=== PATIENT | female | born 1955 | race Caucasian/White ===

== ENCOUNTER 2018-12-21 20:42 | Observation (INO) | payer SELFPAY, OTHER | END 2018-12-23 16:17 | disposition home or self-care (01) | LOC: JER 20:42 → JERBED 12-22 01:18 → J4W 12-22 18:15 ==

== ENCOUNTER 2019-03-21 08:42 | Day surgery (SDC) | payer OTHER | END 2019-03-21 11:30 | disposition home or self-care (01) | LOC: JASU-ENDO 08:42 ==

== ENCOUNTER 2019-03-28 21:46 | Inpatient (IN) | payer OTHER ==
--- NOTE | 2019-03-28 21:54 | PDOC ---
Rapid Medical Evaluation Medical Evaluation: Allergies Allergy/AdvReac Type Severity Reaction Status Date / Time Penicillins Allergy Severe Verified 01/03/19 08:52 Sulfa (Sulfonamide Allergy Severe Verified 01/03/19 08:52 Antibiotics) I have performed a brief in-person evaluation of this patient. The patient presents with a chief complaint of: had injection done of her L knee by orthopedics today; started feeling dizzy after receiving injection along with nausea; denies vomiting, vertigo, sob, cp; hx epilepsy, HTN, CAD s/p HI with PCI (no stents), GERD, asthma Pertinent physical exam findings: In NAD I have ordered the following: Labs, EKG The patient will proceed to the ED for further evaluation. 03/28/19 21:48 Discharge Disposition - Referrals Referrals: Perry Chowdary MD [Primary Care Provider] - - Patient Instructions - Post Discharge Activity
--- NOTE | 2019-03-28 23:24 | PDOC ---
History of Present Illness - General Chief Complaint: Lightheaded Stated Complaint: DIZZINESS Time Seen by Provider: 03/28/19 21:48 - History of Present Illness Initial Comments: 03/28/19 23:23 63 yo M with h/o HTN, HLD, CVA, CAD who p/w left sided headache/pressure, lightheadedness. [employer] phone [phone], Indonesian speaking female. Patient reports onset of headache 30 minutes following steroid injection (03-28-19 at 4: 00 PM) in the left knee. Describes unremitting, headache as left sided pressure , lasting for minutes and resolves spontaneously. No associated photo/phonobia, scintillating scotoma, aura, convulsions. No identifiable alleviators. Patient also reports forgetfulness today, "forgetting what she is going to say. " Denies similar presentation. Patient also states that she felt lightheaded following knee injection, lasting for seconds then resolving spontaneously, and recurring throughout the day. Denies LOC. Also endorses 1 week of + sharp, intermittent, left sided neck pain, worse with right sided rotational head movement,x 1 week. denies trauma to neck, heavy lifting, or repetitive movements. Patient denies vision change, vertigo, palpitations, cough, wheezing, orthopena , PND, leg swelling/pain, F,C, CP, SOB, urinary complaints, hematuria, BPR, abdominal pain, diarrhea, constipation, weakness, sensory changes. Recent stress test (01/03/19) unremarkable. PMHx: as noted above ROS: as noted SHx: Denies Etoh, IVDA, tobacco use Allergies: Sulfa medications, PCN Past History - Past Medical History Allergies/Adverse Reactions: Allergies Allergy/AdvReac Type Severity Reaction Status Date / Time Penicillins Allergy Severe Verified 03/28/19 21:55 Sulfa (Sulfonamide Allergy Severe Verified 03/28/19 21:55 Antibiotics) Home Medications: Ambulatory Orders Atorvastatin Ca [Lipitor] 40 mg PO HS 12/21/18 Aspirin 100 mg PO DAILY 12/22/18 Verapamil HCl [Verapamil ER] 180 mg PO DAILY 12/22/18 Carbamazepine [Tegretol -] 200 mg PO TID #90 tablet 12/23/18 Ipratropium Chandler [Atrovent Hfa] 12.9 gm IH DAILY 03/20/19 Naproxen 500 mg PO BID 03/20/19 Acetaminophen [Tylenol] 650 mg PO PRN 03/21/19 Bisacodyl [Dulcolax] 5 mg PO PRN 03/21/19 Ranitidine [Zantac -] 150 mg PO PRN 03/21/19 Telmisartan [Micardis] 80 mg PO DAILY 03/21/19 Cardiac Disorders: Yes (NV, CAD PCI NO STENTS) CVA: Yes COPD: No Disorders: Yes (GERD,Constipation) HTN: Yes Hypercholesterolemia: Yes Seizures: Yes (Epilepsy) - Surgical History Abdominal Surgery: Yes Cholecystectomy: Yes - Immunization History Immunization Up to Date: Yes - Suicide/Smoking/Psychosocial Hx Smoking History: Never smoked Have you smoked in the past 12 months: No Information on smoking cessation initiated: No Hx Alcohol Use: No Drug/Substance Use Hx: No Substance Use Type: None Hx Substance Use Treatment: No Review of Systems - Review of Systems Comments:: 03/28/19 23:23 GENERAL/CONSTITUTIONAL: No fever or chills. HEAD, EYES, EARS, NOSE AND THROAT: No change in vision. No ear pain or discharge. No sore throat. CARDIOVASCULAR: No chest pain or shortness of breath RESPIRATORY: No cough, wheezing, or hemoptysis. GASTROINTESTINAL: + nausea. No vomiting, diarrhea or constipation. GENITOURINARY: No dysuria, frequency, or change in urination. MUSCULOSKELETAL: + Neck pain. No joint or muscle swelling or pain. No back pain. SKIN: No rash NEUROLOGIC: + headache. No vertigo, loss of consciousness, or change in strength /sensation. ENDOCRINE: No increased thirst. No abnormal weight change HEMATOLOGIC/LYMPHATIC: No anemia, easy bleeding, or history of blood clots. ALLERGIC/IMMUNOLOGIC: No hives or skin allergy. *Physical Exam - Vital Signs Last Vital Signs Temp Pulse Resp BP Pulse Ox 98.3 F 79 18 152/70 100 03/28/19 21:48 03/28/19 21:48 03/28/19 21:48 03/28/19 21:48 03/28/19 21:48 - Physical Exam Comments: 03/28/19 23:23 GENERAL: Awake, alert, and fully oriented, in no acute distress HEAD: No signs of trauma, normocephalic, atraumatic EYES: PERRLA, EOMI, sclera anicteric, conjunctiva clear ENT: +left anterior neck pain/ttp at anterior triangle/superior medial SCM. Auricles normal inspection, hearing grossly normal, nares patent, oropharynx clear without exudates. Moist mucosa NECK: Neg nuchal rigidity. Normal ROM, supple, no lymphadenopathy, JVD, or masses LUNGS: No distress, speaks full sentences, clear to auscultation bilaterally HEART: Regular rate and rhythm, normal S1 and S2, no murmurs, rubs or gallops, peripheral pulses normal and equal bilaterally. ABDOMEN: Soft, nontender, normoactive bowel sounds. No guarding, no rebound. No masses EXTREMITIES : Normal inspection, Normal range of motion, no edema. No clubbing or cyanosis NEUROLOGICAL: Cranial nerves II through XII grossly intact. Normal speech, normal gait, no focal sensorimotor deficits SKIN: Warm, Dry, normal turgor, no rashes or lesions noted Heart Score/ECG Review - History History: Slightly suspicious - Electrocardiogram EKG: Non specific repolarization disturbance - Age Age: >/= 65 - Risk Factors Risk Factors Heart Score: Yes Hx Hypercholesterolemia, Yes Hx Hypertension, Yes Hx Diabetes, Yes Positive family hx of cardiac disease, Yes Hx Obesity Based on the list above the patient has:: >/=3 risk factors or Hx atherosclerotic disease - Troponin Troponin: </= normal limit - Score Heart Score - Total: 5 ED Treatment Course - LABORATORY CBC & Chemistry Diagram: 03/29/19 00:35 03/29/19 00:35 - ADDITIONAL ORDERS Additional order review: 03/29/19 06:04 Patient Information: : 1955 Order Type: Preliminary Name: MORE ONEAL Sex: F Study Description: CT CTA HEAD AND NECK Modality: CT Location: [facility] Referring Physician: YUDY NUNEZ Comments: Tiago Hansen MD wrote on Mar 29, 2019 at 03:13 AM: Referring Physician: YUDY NUNEZ Patient Name: KIMMY AGUERO THIS IS A PRELIMINARY REPORT FROM [facility] DATE OF SERVICE: 2019-03-29 02:30:10 IMAGES: [id number] EXAM: CTA brain and CTA neck HISTORY: Left-sided anterior neck pain and left-sided headache lightheaded slurred speech COMPARISON: None. FINDINGS: CTA brain: The anterior and posterior arterial circulations are patent. No stenosis occlusion dissection or aneurysm. Minimal atherosclerotic calcification noted along the carotid siphons. CTA neck: Limitation: There is motion artifact at the base of the neck limiting evaluation of the carotid arteries bilaterally at the base of the neck. CONFIDENTIALITY NOTICE: This information is intended only for the use of the recipient(s) named above. If you are not the intended recipient, or a person responsible for delivering it to the intended recipient, you are hereby notified that any disclosure, copying, distribution or use of any of the information contained in or attached to this transmission is STRICTLY PROHIBITED. If you have received this transmission in error, please immediately notify [facility] Operator and destroy the original transmission and its attachments without saving them in any manner [address] [place] [address] Phone: [phone] ([phone]) Fax: Email: [email or web address] Patient Information: : 1955 Order Type: Preliminary Name: MORE ONEAL Sex: F Study Description: CT CTA HEAD AND NECK Modality: CT Location: [facility] Referring Physician: YUDY Daniels the cervical common carotid arteries, the bifurcations, the cervical internal carotid arteries and bilateral cervical vertebral arteries are patent without stenosis occlusion dissection or aneurysm Minimal atherosclerotic plaque at the left carotid bifurcation. One or more of the following dose reduction techniques were used: automated exposure control, adjustment of the mA and/or kV according to patient size, use of iterative reconstructive technique. THIS DOCUMENT HAS BEEN ELECTRONICALLY SIGNED Tiago Hansen MD 03/29/2019 03:12 PUMA MBrandon. Please call [facility] Sp[facility] Scre[facility] Machine Operator [phone] ([phone]) with questions. Tiago Hansen MD Clinicians - Please contact [facility] Sp[facility] Scre[facility] Machine Operator with further questions at [phone]) Patients - Please contact your Ordering Provider with questions. CONFIDENTIALITY NOTICE: This information is intended only for the use of the Medical Decision Making - Medical Decision Making 03/28/19 23:23 63 yo M with h/o HTN, HLD, CVA, CAD who p/w left sided headache/pressure, lightheadedness. Vitals wnl, AF, A&Ox3. Physical exam with reproducible left anterior neck pain/ttp at anterior triangle/superior medial SCM. Absent neuro deficits on exam. Denies vertigo, palpitations, cough, wheezing, leg swelling/ pain, F/C, CP, SOB, urinary complaints, BPR, abdominal pain, diarrhea, constipation, sensory changes. + headache with absent alarm findings, negative nuchal rigidity. GOMEZ is gradual onset, similar to prior GOMEZ, and low intensity. No evidence carotid dissection. Will evaluate for hypoglycemia, CVA/TIA, cardiac dyssarythmias, electrolyte abnml, metabolic and toxic derangements, acid -base disturbances, infection. Ed Course: 03/28/19 23:33 EKG: NSR with absent ROSIBEL, STD. Nml interval duration and axis. Nml R wave progression. Absent Q waves. + TWI V2-V3. Similar to prior interval EKG (12/28) 03/29/19 06:03 Laboratory Tests 03/29/19 03/29/19 03/29/19 00:35 00:35 00:35 WBC 5.7 Hgb 11.6 Hct 34.8 Plt Count 265 Sodium 134 L BUN 15.2 Creatinine 0.7 Troponin I 0.02 Heart Score 5 03/29/19 06:04 Findings CTA: The anterior and posterior arterial circulations are patent. No stenosis occlusion dissection or aneurysm. Minimal atherosclerotic calcification noted along the carotid siphons. CTA neck: Limitation: There is motion artifact at the base of the neck limiting evaluation of the carotid arteries bilaterally at the base of the neck. 03/29/19 07:06 Pt. endorsed to medicine. Admit *DC/Admit/Observation/Transfer Diagnosis at time of Disposition: Lightheadedness, TIA (transient ischemic attack) - Discharge Dispostion Condition at time of disposition: Stable Decision to Admit order: Yes - Referrals Referrals: Perry Chowdary MD [Primary Care Provider] - - Patient Instructions - Post Discharge Activity
--- NOTE | 2019-03-28 23:25 | PDOC ---
*Physical Exam - Vital Signs Last Vital Signs Temp Pulse Resp BP Pulse Ox 98.3 F 79 18 152/70 100 03/28/19 21:48 03/28/19 21:48 03/28/19 21:48 03/28/19 21:48 03/28/19 21:48 Medical Decision Making - Medical Decision Making 03/28/19 23:24 Patient seen by the advanced practice provider under my direct supervision. Ancillary testing reviewed as necessary. I agree with plan as outlined by the advanced practice provider. *DC/Admit/Observation/Transfer - Referrals Referrals: Perry Chowdary MD [Primary Care Provider] - - Patient Instructions - Post Discharge Activity
[2019-03-29] MEDS ORDERED: SODIUM CHLORIDE 1,000 ML IV STA (00:32)
[2019-03-29] MEDS ORDERED: ACETAMINOPHEN 1000 MG/100 ML VIAL (NON FORMULARY) IVPB ONE (00:32)
[2019-03-29 01:00] LABS: BASO % 0.4 % (0-2.0); EOS % 4.1 % (0-4.5); HEMATOCRIT 34.8 % (32.4-45.2); HEMOGLOBIN 11.6 GM/dL (10.7-15.3); MCH 30.9 pg (25.7-33.7); MCHC 33.4 g/dl (32.0-36.0); MEAN CELL VOLUME 92.4 fl (80-96); MEAN PLT VOLUME 8.1 fl (7.5-11.1); MONO % 7.3 % (3.8-10.2); NEUT % 55.2 % (42.8-82.8); PLATELET COUNT 265 K/MM3 (134-434); RBC 3.77 M/mm3 (3.60-5.2); RDW 13.8 % (11.6-15.6); WHITE BLOOD COUNT 5.7 K/mm3 (4.0-10.0)
[2019-03-29 01:05] LABS: EPI CELLS 2.7 /HPF (0-5/HPF); HYALINE CASTS 1 /lpf (0-8); PH,URINE 7.5 (5.0-8.0); URINE APPEARANCE CLEAR; URINE BACTERIA 796.2 /hpf (NEGATIVE); URINE BILIRUBIN NEGATIVE (NEGATIVE); URINE COLOR YELLOW; URINE GLUCOSE (UA) NEGATIVE (NEGATIVE); URINE KETONE NEGATIVE (NEGATIVE); URINE LEUK ESTERASE TRACE (NEGATIVE); URINE NITRITE NEGATIVE (NEGATIVE); URINE PROTEIN NEGATIVE (NEGATIVE); URINE RBC 0 /hpf (0-4); URINE UROBILINOGEN 0.2 mg/dL (0.2-1.0); URINE WBC 4 /hpf (0-5)
[2019-03-29] MEDS ORDERED: ACETAMINOPHEN INJECTION 100 ML IVPB ONE (01:11)
[2019-03-29 01:25] LABS: BLOOD UREA NITROGEN 15.2 mg/dL (7-18); CREATININE 0.7 mg/dL (0.55-1.3)
[2019-03-29 01:26] LABS: ALBUMIN 3.9 g/dl (3.4-5.0); BILIRUBIN,TOTAL 0.2 mg/dL (0.2-1); POTASSIUM 4.4 mmol/L (3.5-5.1); TOT PROT 7.2 g/dl (6.4-8.2)
--- NOTE | 2019-03-29 08:36 | HP ---
CHIEF COMPLAINT: Headache, Neck Pain, ?Word finding difficulty PCP: Dr. Hawley HISTORY OF PRESENT ILLNESS: 63 y/o F with PMHx of Epilepsy, CAD (s/p PCI, No Stents, Recent stress test ), HTN, HLD, Asthma, GERD presents with Headache, Neck Pain and ?Word finding difficulty. Patient is primarily syriac speaking thus the [place] administrative law judge phone was use, [employer] [phone]. Patiet has had Left sided neck pain described as a strong ache, worse with palpation for the past week. Yesterday, she visited her Orthopedic sx for a cortisone injection; After the injection, patient felt sudden onset Left sided headache and face pain, accompanied by nausea and dizziness, forcing the patient to lay supine without relief. She shortly after went home however her symptoms persisted and she noted a new left eye conjunctival injection. She was hesitant to visit the ED but was afraid of worsening while asleep, prompting her to visit the ED. Her headache waxes and wanes, and is rated at 5-6/10 at worst, She is unable to describe it but mentions it radiates to her left neck and trapezius. Denies any recent trauma. No associated numbness, tingling, weakness. She has tried anything for the pain, and is unable to identify any triggers or relieving sx's. She additionally mentions some word finding difficulty while she was home. She is unable to quantify but mentions this has been ongoing and is currently not experiencing this. Denies any associated fevers, chills, chest pain, SOB, nausea, vomiting, diarhea , constipation. ER course was notable for: (1) (2) (3) Recent Travel: Denies PAST MEDICAL HISTORY: As above PAST SURGICAL HISTORY: CCY, Hysterectomy, Varicose vein repair Social History: Smoking: Denies Alcohol: Denies Drugs: Denies Ambulation: Cane Residence: With Family History: Mother with heart disease, Father with epilepsy Allergies Penicillins Allergy (Severe, Verified 03/28/19 21:55) Sulfa (Sulfonamide Antibiotics) Allergy (Severe, Verified 03/28/19 21:55) HOME MEDICATIONS: Home Medications Medication Instructions Recorded Atorvastatin Ca [Lipitor] 40 mg PO HS 12/21/18 Aspirin 81 mg PO DAILY 12/22/18 Verapamil HCl [Verapamil ER] 180 mg PO DAILY 12/22/18 Naproxen 500 mg PO BID 03/20/19 Telmisartan [Micardis] 80 mg PO DAILY 03/21/19 Albuterol Sulfate Inhaler - 2 puff PO TID 03/29/19 [Ventolin HFA Inhaler -] Carbamazepine [Tegretol -] 200 mg PO BID 03/29/19 Telmisartan/Hydrochlorothiazid PO DAILY 03/29/19 [Telmisartan-Hctz 80-12.5 mg Tb] REVIEW OF SYSTEMS As per HPI PHYSICAL EXAMINATION Vital Signs - 24 hr 03/28/19 03/29/19 21:48 07:29 Temperature 98.3 F Pulse Rate 79 Pulse Rate [ 66 Right Radial] Respiratory 18 18 Rate Blood Pressure 152/70 Blood Pressure 124/69 [Right Arm] O2 Sat by Pulse 100 100 Oximetry (%) GENERAL: A&Ox3, NAD HEAD: NCAT EYES: PERRL, EOMI, Left conjunctival injection ENT: oropharynx clear without exudates. Moist mucous membranes. NECK: No JVD, FROM however left rotation and sidebending induce pain, Left neck tender to palaption, no midline spine tenderness LUNGS: Diminished breath sounds at the bases, No wheezes, no crackles HEART: Regular rate and rhythm, normal S1 and S2 without murmur ABDOMEN: Obese, Soft, nontender, not distended, + bowel sounds, no guarding, no rebound EXTREMITIES: 2+ pulses, No peripheral edema. NEUROLOGICAL: Cranial nerves II-XII intact. Normal speech. Diminished sensation over the Left knee only otherwise Gross sensation including Left L4 dermatome intact, 5/5 muscle strength throughout. NIHSS 0 SKIN: Warm, dry, B/L Lower extremity Varicose veins Laboratory Results - last 24 hr 03/29/19 03/29/19 03/29/19 00:35 00:35 00:35 WBC 5.7 RBC 3.77 Hgb 11.6 Hct 34.8 MCV 92.4 MCH 30.9 MCHC 33.4 RDW 13.8 Plt Count 265 MPV 8.1 Absolute Neuts (auto) 3.2 Neutrophils % 55.2 Lymphocytes % 33.0 Monocytes % 7.3 Eosinophils % 4.1 D Basophils % 0.4 Nucleated RBC % 0 Sodium 134 L Potassium 4.4 Chloride 99 Carbon Dioxide 29 Anion Gap 7 L BUN 15.2 Creatinine 0.7 Est GFR (CKD-EPI)AfAm 105.38 Est GFR (CKD-EPI)NonAf 90.92 Random Glucose 94 Calcium 9.0 Total Bilirubin 0.2 AST 15 ALT 19 Alkaline Phosphatase 220 H Troponin I 0.02 Total Protein 7.2 Albumin 3.9 Urine Color Urine Appearance Urine pH Ur Specific Irwin Urine Protein Urine Glucose (UA) Urine Ketones Urine Blood Urine Nitrite Urine Bilirubin Urine Urobilinogen Ur Leukocyte Esterase Urine WBC (Auto) Urine RBC (Auto) Urine Casts (Auto) U Epithel Cells (Auto) Urine Bacteria (Auto) 03/29/19 00:35 WBC RBC Hgb Hct MCV MCH MCHC RDW Plt Count MPV Absolute Neuts (auto) Neutrophils % Lymphocytes % Monocytes % Eosinophils % Basophils % Nucleated RBC % Sodium Potassium Chloride Carbon Dioxide Anion Gap BUN Creatinine Est GFR (CKD-EPI)AfAm Est GFR (CKD-EPI)NonAf Random Glucose Calcium Total Bilirubin AST ALT Alkaline Phosphatase Troponin I Total Protein Albumin Urine Color Yellow Urine Appearance Clear Urine pH 7.5 Ur Specific Irwin 1.015 Urine Protein Negative Urine Glucose (UA) Negative Urine Ketones Negative Urine Blood Negative Urine Nitrite Negative Urine Bilirubin Negative Urine Urobilinogen 0.2 Ur Leukocyte Esterase Trace Urine WBC (Auto) 4 Urine RBC (Auto) 0 Urine Casts (Auto) 1 U Epithel Cells (Auto) 2.7 Urine Bacteria (Auto) 796.2 Active Medications Acetaminophen (Ofirmev Injection -) 1,000 mg IVPB Q6H PRN PRN Reason: HEADACHE Albuterol Sulfate (Ventolin Hfa Inhaler -) 2 puff IH TID [facility] Aspirin (Asa -) 81 mg PO DAILY [facility] Atorvastatin Calcium (Lipitor -) 40 mg PO HS [facility] Carbamazepine (Tegretol -) 200 mg PO BID [facility] Diphenhydramine HCl (Benadryl -) 25 mg PO Q6H PRN PRN Reason: FOR ITCHING Heparin Sodium (Porcine) (Heparin -) 5,000 unit SQ Q8H-IV [facility] Sodium Chloride (Normal Saline -) 1,000 mls @ 83 mls/hr IV ASDIR [facility] Ibuprofen (Caldolor Injection -) 600 mg IVPB Q8H PRN PRN Reason: FEVER Non-Formulary Medication ([id number]/Sod Sulf,Bicarb,Cl/Kcl [Gavilyte-G Solution]) 4,000 ml PO DAILY [facility] Non-Formulary Medication (Verapamil Hcl [Verapamil Er]) 180 mg PO DAILY [facility] ASSESSMENT/PLAN: 63 y/o F with PMHx of Epilepsy, CAD (s/p PCI, No Stents, Recent stress test ), HTN, HLD, Asthma, GERD presents with Headache and Neck Pain. #Headache, Neck Pain -Unclear Etiology; Refractory headache possibly Migraine, Word finding difficulty (?Chronic) raises concerns for possible TIA -Head and Neck CTA pending official Read -Check brain MRI w/o contrast -Continue IV Hydration via NS -Analgesia via IV Acetaminophen, Ibuprofen; If remains in pain will escalate to Toradol -Diphenhydramine PRN #Epilepsy -Continue home dose AEDs #CAD (s/p PCI, No Stents, Recent stress test 12/28) -Continue home dose ASA, Statin #HTN -Continue home dose Verapamil -Pharmacy has Rx sent on 03/26 for both Telmisartan (stand alone) and Telmisartan /HCTZ, Will reach out to PCP to determine which is correct #HLD -Statin #Asthma -Continue home dose bronchodilators #FEN -IV NS @ 83 -Replete Lytes PRN -Sodium Cont #PPx -DVT: Heparin Dispo: Admit to Med-Surg Visit type - Emergency Visit Emergency Visit: Yes ED Registration Date: 03/29/19 Care time: The patient presented to the Emergency Department on the above date and was hospitalized for further evaluation of their emergent condition. - New Patient This patient is new to me today: Yes Date on this admission: 03/29/19 - Critical Care Critical Care patient: No ATTENDING PHYSICIAN STATEMENT I saw and evaluated the patient. I reviewed the resident's note and discussed the case with the resident. I agree with the resident's findings and plan as documented. SUBJECTIVE: OBJECTIVE: ASSESSMENT AND PLAN:
[2019-03-29] MEDS ORDERED: IBUPROFEN 800 MG/8 ML IJ IVPB PRN (09:49)
[2019-03-29] MEDS ORDERED: ACETAMINOPHEN 1000 MG/100 ML VIAL (NON FORMULARY) IVPB PRN (09:49)
[2019-03-29] MEDS ORDERED: diphenhydrAMINE HCL 25 MG CAPSULE (FP) PO PRN (09:49)
[2019-03-29] MEDS: SODIUM CHLORIDE 1,000 ML IV SCH (10:44)
--- NOTE | 2019-03-29 11:17 | EKG ---
Test Reason : Blood Pressure : / mmHG Vent. Rate : 068 BPM Atrial Rate : 068 BPM P-R Int : 152 ms QRS Dur : 086 ms QT Int : 402 ms P-R-T Axes : 039 033 051 degrees QTc Int : 427 ms POOR DATA QUALITY, INTERPRETATION MAY BE ADVERSELY AFFECTED NORMAL SINUS RHYTHM T WAVE ABNORMALITY, CONSIDER ANTERIOR ISCHEMIA ABNORMAL ECG WHEN COMPARED WITH ECG OF 22-DEC-2018 05:19, NO SIGNIFICANT CHANGE WAS FOUND Confirmed by LYDIA ABDULLAHI MD ([id number]) on 03/29/2019 11:16:53 AM Referred By: Confirmed By:LYDIA ABDULLAHI MD
[2019-03-29 14:00] VITALS: BMI 40.5
[2019-03-29] MEDS: ALBUTEROL SO4 8 GM HFA INHALER IH SCH ×2 (14:00→22:03)
[2019-03-29] MEDS ORDERED: PT OWN MED DRAWER 7, Y5N ONE ×2 (14:38→21:45)
[2019-03-29] MEDS: HEPARIN NA (PORCINE) 5,000 UNITS/ML 1ML VIAL SQ SCH ×2 (15:03→22:00)
[2019-03-29] MEDS: ASPIRIN 81 MG CHEWABLE TABLETS PO SCH (15:03)
[2019-03-29] MEDS: carBAMazepine 200 MG TABLET PO SCH ×3 (17:09→23:46)
[2019-03-29] MEDS: VERAPAMIL HCL 180 MG E.R. TABLET PO SCH (17:10)
--- NOTE | 2019-03-29 17:40 | PN ---
Teaching Attending Note Name of Resident: Giulia Costa ATTENDING PHYSICIAN STATEMENT I saw and evaluated the patient. I reviewed the resident's note and discussed the case with the resident. I agree with the resident's findings and plan as documented. SUBJECTIVE: cigar head holer phone Abdirahman [phone] used CC: L sided GOMEZ and L sided numbness and neck pain HPI: 63 y/o lady with h/o Epilepsy, CAD, HTN, HLD, Asthma, GERD, amd recent PCi with no stents placement, who presented with L sided neck pain as well as GOMEZ , and L sided numbness. sx started yesterday, with L sided neck, with no proceeding trauma. yesterday she had difficulty finding words, which resolved today. today she hasL sided face pain and numbness in her LUE and LLE. she deos not have visual changes but noticed blood in her L eye today. she never had GOMEZ. of note she is poor historian and gave different stories to different MDs no fever or chills, no abd pain. OBJECTIVE: NAD, awake, alert and oriented HEENT: L subconjunctival bleed. round equal pupils, reactive to light. MMM. TTP over L trapezius muscle CV: RRR, no MRG Lungs:CATB Ext : No edema or erythema Abd: soft, NT, ND , NL BS Neuro: EOMI, round equal and reactive pupils, no facail droop, tongue and uvula at mid line. sensation to light touch is decreased in L face and LUE and LLE. strength 5/5 in upper and lower extremities proximally and distally. reflexes: 2 + biceps and knee jerk. imaging CTs, and EKG reviewed ( Sinus, RBBB, QTc 427, TWI V1, 2 old ) . ASSESSMENT AND PLAN: 63 y/o lady with h/o Epilepsy, CAD, HTN, HLD, Asthma, GERD, amd recent PCi with no stents placement, who presented with L sided neck pain as well as GOMEZ , and L sided numbness. 1- Neuro sx of L sided numbness and L sided face pain, could be due to complicated migraine , but need to r/o thalamic stroke CT of neck did not show any fx, spondylosis or bony abnormality. - get MRI of the brain. - no signs of hyper-reflexia ro concern for cervical compression - If MRI is neg, then might need a non urgent neck MRI. - treat with IVF, tylenol, bandryl, and toradol - check B 12 2- HTN, HLP, CAD: cont statin, CCB, ASA. DVT px : heparin
--- NOTE | 2019-03-29 19:47 | PDOC ---
Attending Attestation - Resident Resident Name: Juvenal Abdullahison - ED Attending Attestation I have performed the following: I have examined & evaluated the patient, The case was reviewed & discussed with the resident, I agree w/resident's findings & plan - HPI HPI: 03/29/19 19:45 see resident hpi - Physicial Exam PE: 03/29/19 19:45 agree with resident exam - Medical Decision Making 03/29/19 19:46 63-year-old female with left-sided headache and intermittent aphasia CTA of the head and neck show no significant abnormality Plan for admission to medical service for further evaluation
[2019-03-29] MEDS: ATORVASTATIN CA 40 MG TABLET (FP) PO SCH (22:08)
[2019-03-30] MEDS: HEPARIN NA (PORCINE) 5,000 UNITS/ML 1ML VIAL SQ SCH ×3 (06:06→22:14)
[2019-03-30] MEDS: ALBUTEROL SO4 8 GM HFA INHALER IH SCH ×3 (06:08→22:15)
[2019-03-30] MEDS ORDERED: PT OWN MED DRAWER 7, Y5N ONE ×2 (06:15→11:11)
[2019-03-30 07:15] LABS: BASO % 0.3 % (0-2.0); EOS % 2.7 % (0-4.5); HEMOGLOBIN 11.6 GM/dL (10.7-15.3); LYMPH % 35.8 % (8-40); MCH 31.5 pg (25.7-33.7); MCHC 34.1 g/dl (32.0-36.0); MEAN CELL VOLUME 92.3 fl (80-96); MONO % 6.4 % (3.8-10.2); NEUT % 54.8 % (42.8-82.8); PLATELET COUNT 258 K/MM3 (134-434); RBC 3.69 M/mm3 (3.60-5.2); WHITE BLOOD COUNT 5.7 K/mm3 (4.0-10.0)
[2019-03-30 08:06] LABS: ALBUMIN 3.5 g/dl (3.4-5.0); BILIRUBIN,TOTAL 0.4 mg/dL (0.2-1); BLOOD UREA NITROGEN 15.9 mg/dL (7-18); CALCIUM 8.6 mg/dL (8.5-10.1); CREATININE 0.7 mg/dL (0.55-1.3); MAGNESIUM 2.2 mg/dL (1.8-2.4); PHOSPHOROUS 4.7 mg/dL (2.5-4.9); POTASSIUM 3.9 mmol/L (3.5-5.1); TOT PROT 6.7 g/dl (6.4-8.2)
[2019-03-30] MEDS ORDERED: [UNRECOGNIZED DRUG - OTHER] PO SCH (10:00)
[2019-03-30] MEDS ORDERED: POTASSIUM CHLORIDE PO SCH (10:00)
[2019-03-30] MEDS ORDERED: SODIUM SULFATE PO SCH (10:00)
[2019-03-30] MEDS ORDERED: SODIUM BICARBONATE PO SCH (10:00)
[2019-03-30] MEDS ORDERED: SODIUM CHLORIDE PO SCH (10:00)
[2019-03-30] MEDS: SODIUM CHLORIDE 1,000 ML IV SCH (11:17)
[2019-03-30] MEDS: VERAPAMIL HCL 180 MG E.R. TABLET PO SCH (11:19)
[2019-03-30] MEDS: CYCLOBENZAPRINE HCL 5 MG TABLET PO SCH ×3 (11:20→22:13)
[2019-03-30] MEDS: carBAMazepine 200 MG TABLET PO SCH (11:40)
[2019-03-30] MEDS: ASPIRIN 81 MG CHEWABLE TABLETS PO SCH (11:40)
--- NOTE | 2019-03-30 14:35 | PN ---
Physical Exam: SUBJECTIVE: Patient seen and examined at the bedside, there were no acute events overnight. Patient still complaining of some L sided neck pain and L sided facial numbness. OBJECTIVE: Vital Signs Period Temp Pulse Resp BP Sys/Nunez Pulse Ox Last 24 Hr 97.6 F-97.8 F 68-77 18-20 132-147/60-81 98 GENERAL: The patient is awake, alert, and fully oriented, in no acute distress. HEAD: Normal with no signs of trauma. EYES: PERRL, extraocular movements intact, sclera anicteric, L sided subconjunctival hemorrhage. ENT: Ears normal, nares patent, oropharynx clear without exudates, moist mucous membranes. NECK: Trachea midline,tender to palpation over L trapezius muscle LUNGS: Breath sounds equal, clear to auscultation bilaterally, no wheezes, no crackles, no accessory muscle use. HEART: Regular rate and rhythm, S1, S2 without murmur, rub or gallop. ABDOMEN: Soft, nontender, nondistended, normoactive bowel sounds, no guarding, no rebound, EXTREMITIES: 2+ pulses, warm, well-perfused, no edema. NEUROLOGICAL: Cranial nerves II through XII grossly intact, however sensation to L touch is decreased in the V1-V3 distribution and along the L side of body. Strength 5/5 in upper and lower extremities. Normal speech, gait not observed. PSYCH: Normal mood, normal affect. SKIN: Warm, dry, normal turgor, no rashes or lesions noted Laboratory Results - last 24 hr 03/30/19 03/30/19 06:40 06:40 WBC 5.7 RBC 3.69 Hgb 11.6 Hct 34.0 MCV 92.3 MCH 31.5 MCHC 34.1 RDW 14.0 Plt Count 258 MPV 8.0 Absolute Neuts (auto) 3.1 Neutrophils % 54.8 Lymphocytes % 35.8 Monocytes % 6.4 Eosinophils % 2.7 Basophils % 0.3 Nucleated RBC % 0 Sodium 136 Potassium 3.9 Chloride 103 Carbon Dioxide 28 Anion Gap 5 L BUN 15.9 Creatinine 0.7 Est GFR (CKD-EPI)AfAm 105.38 Est GFR (CKD-EPI)NonAf 90.92 Random Glucose 99 Calcium 8.6 Phosphorus 4.7 Magnesium 2.2 Total Bilirubin 0.4 AST 14 L ALT 19 Alkaline Phosphatase 202 H Total Protein 6.7 Albumin 3.5 Vitamin B12 669 Active Medications Generic Name Dose Route Start Last Admin Trade Name Freq PRN Reason Stop Dose Admin Acetaminophen 1,000 mg 03/29/19 09:49 Ofirmev Injection - IVPB Q6H PRN HEADACHE Albuterol Sulfate 2 puff 03/29/19 14:00 03/30/19 14:31 Ventolin Hfa Inhaler - IH 2 puff TID HARLEY Administration Aspirin 81 mg 03/29/19 10:45 03/30/19 11:40 Asa - PO 81 mg DAILY HARLEY Administration Atorvastatin Calcium 40 mg 03/29/19 22:00 03/29/19 22:08 Lipitor - PO 40 mg HS HARLEY Administration Carbamazepine 200 mg 03/29/19 10:45 03/30/19 11:40 Tegretol - PO 200 mg BID HARLEY Administration Cyclobenzaprine HCl 5 mg 03/30/19 09:40 03/30/19 13:54 Cyclobenzaprine Hcl PO Not Given TID HARLEY Diphenhydramine HCl 25 mg 03/29/19 09:49 Benadryl - PO Q6H PRN FOR ITCHING Heparin Sodium (Porcine) 5,000 unit 03/29/19 14:00 03/30/19 14:30 Heparin - SQ 5,000 unit TID HARLEY Administration Sodium Chloride 1,000 mls @ 83 mls/hr 03/29/19 09:45 03/30/19 11:17 Normal Saline - IV Not Given ASDIR HARLEY Ibuprofen 600 mg 03/29/19 09:49 Caldolor Injection - IVPB Q8H PRN FEVER Verapamil HCl 180 mg 03/29/19 10:45 03/30/19 11:19 Calan Sr - PO 180 mg DAILY HARLEY Administration ASSESSMENT/PLAN: 63 y/o F with PMHx of Epilepsy, CAD (s/p PCI, No Stents, Recent stress test ), HTN, HLD, Asthma, GERD presents with Headache and Neck Pain. #Headache, Neck Pain -Unclear Etiology; Refractory headache possibly Migraine, Word finding difficulty (?Chronic) raises concerns for possible TIA -MRI without evidence of infarcts -Continue IV Hydration via NS -Analgesia via IV Acetaminophen, Ibuprofen; If remains in pain will escalate to Toradol -Diphenhydramine PRN - add flexeril - neuro c/s - to evaluate for complicated migraines. #Epilepsy -Continue home dose AEDs #CAD (s/p PCI, No Stents, Recent stress test 12/28) -Continue home dose ASA, Statin #HTN -Continue home dose Verapamil -Pharmacy has Rx sent on 03/26 for both Telmisartan (stand alone) and Telmisartan /HCTZ, Will reach out to PCP to determine which is correct #HLD -Statin #Asthma -Continue home dose bronchodilators #FEN -IV NS @ 83 -Replete Lytes PRN -Sodium Cont #PPx -DVT: Heparin Dispo: Pending neuro eval. Visit type - Emergency Visit Emergency Visit: Yes ED Registration Date: 03/29/19 Care time: The patient presented to the Emergency Department on the above date and was hospitalized for further evaluation of their emergent condition. - New Patient This patient is new to me today: Yes Date on this admission: 04/02/19 - Critical Care Critical Care patient: No - Discharge Referral Referred to [facility] No ATTENDING PHYSICIAN STATEMENT I saw and evaluated the patient. I reviewed the resident's note and discussed the case with the resident. I agree with the resident's findings and plan as documented. SUBJECTIVE: OBJECTIVE: ASSESSMENT AND PLAN:
--- NOTE | 2019-03-30 17:15 | PN ---
Teaching Attending Note Name of Resident: Kelin Mata ATTENDING PHYSICIAN STATEMENT I saw and evaluated the patient. I reviewed the resident's note and discussed the case with the resident. I agree with the resident's findings and plan as documented. SUBJECTIVE: seen in am , cont to have L sided face numbness and pain. L neck pain OBJECTIVE: NAD, awake, alert and oriented HEENT: L subconjunctival bleed ( improved ) . round equal pupils, reactive to light. MMM. TTP over L trapezius muscle CV: RRR, no MRG Lungs:CATB Ext : No edema or erythema Neuro: EOMI, round equal and reactive pupils, no facial droop, tongue and uvula at mid line. sensation to light touch is decreased in L face and L neck . normal in LUE and LLE today strength 5/5 in upper and lower extremities proximally and distally. reflexes: 2 + biceps and knee jerk and BR ASSESSMENT AND PLAN: 63 y/o lady with h/o Epilepsy, CAD, HTN, HLD, Asthma, GERD, amd recent PCi with no stents placement, who presented with L sided neck pain as well as GOMEZ , and L sided numbness. 1- Neuro sx of L sided numbness and L sided face pain, could be due to complicated migraine. MRI did not show any infarcts - cont current management - add flexeril - neuro c/s - B12 nl 2- HTN, HLP, CAD: cont statin, CCB, ASA. DVT px : heparin
[2019-03-30] MEDS: ATORVASTATIN CA 40 MG TABLET (FP) PO SCH (22:13)
[2019-03-30] MEDS: CARBAMAZEPINE 200 MG PO SCH (22:14)
[2019-03-31] MEDS: CYCLOBENZAPRINE HCL 5 MG TABLET PO SCH ×2 (06:33→13:38)
[2019-03-31] MEDS: HEPARIN NA (PORCINE) 5,000 UNITS/ML 1ML VIAL SQ SCH ×2 (06:33→13:02)
[2019-03-31] MEDS: ALBUTEROL SO4 8 GM HFA INHALER IH SCH (06:34)
[2019-03-31 08:06] LABS: BLOOD UREA NITROGEN 13.5 mg/dL (7-18); CALCIUM 8.7 mg/dL (8.5-10.1); CREATININE 0.7 mg/dL (0.55-1.3); HEMOGLOBIN 11.1 GM/dL (10.7-15.3); MCH 31.1 pg (25.7-33.7); MCHC 33.6 g/dl (32.0-36.0); MEAN CELL VOLUME 92.6 fl (80-96); MEAN PLT VOLUME 7.9 fl (7.5-11.1); PLATELET COUNT 259 K/MM3 (134-434); POTASSIUM 4.3 mmol/L (3.5-5.1); RBC 3.57 M/mm3 (3.60-5.2); RDW 13.9 % (11.6-15.6); WHITE BLOOD COUNT 4.5 K/mm3 (4.0-10.0)
[2019-03-31] MEDS ORDERED: ACETAMINOPHEN/CAFFEINE/BUTALBITAL 1 TAB PO PRN (08:44)
--- NOTE | 2019-03-31 09:20 | CONSULT ---
Consult - text type - Consultation Consultation Note: Neurology CHIEF COMPLAINT: Headache, Neck Pain, ?Word finding difficulty HISTORY OF PRESENT ILLNESS: 63 y/o F with PMHx of Epilepsy, CAD (s/p PCI, No Stents, Recent stress test ), HTN, HLD, Asthma, GERD presents with Headache, Neck Pain and ?Word finding difficulty. Patient reported Left sided neck pain described as a strong ache, worse with palpation for the past week. J prior to admission, she visited her Orthopedic sx for a cortisone injection; After the injection, patient felt sudden onset Left sided headache and face pain, accompanied by nausea and dizziness, forcing the patient to lay supine without relief. She shortly after went home however her symptoms persisted and she noted a new left eye conjunctival injection. She was hesitant to visit the ED but was afraid of worsening while asleep, prompting her to visit the ED. Her headache waxes and wanes, and is rated at 5-6/10 at worst, She is unable to describe it but mentions it radiates to her left neck and trapezius. Denies any recent trauma. No associated numbness, tingling, weakness. She has tried anything for the pain , and is unable to identify any triggers or relieving sx's. She additionally mentioned some word finding difficulty while she was home. She is unable to quantify but mentions this has been ongoing and is currently not experiencing this. she completed noncontrast head CT which did not show any acute changes. CTA of the head and neck was also completed to rule out dissection and was within normal limits. MRI of the brain was also completed and did not show any significant infarct or space-occupying lesions. This morning, she reports feeling at baseline without significant neurologic complaints. She is interested in discharge and I have no objection to this. She has been on verapamil which I discussed with the resident can be helpful for cluster headaches. He provided prescription for Fioricet to be taken as needed and can follow up as an outpatient. Recent Travel: Denies PAST MEDICAL HISTORY: As above PAST SURGICAL HISTORY: CCY, Hysterectomy, Varicose vein repair Social History: Smoking: Denies Alcohol: Denies Drugs: Denies Ambulation: Cane Residence: With Family History: Mother with heart disease, Father with epilepsy Allergies Penicillins Allergy (Severe, Verified 03/28/19 21:55) Sulfa (Sulfonamide Antibiotics) Allergy (Severe, Verified 03/28/19 21:55) HOME MEDICATIONS: Home Medications Medication Instructions Recorded Atorvastatin Ca [Lipitor] 40 mg PO HS 12/21/18 Aspirin 81 mg PO DAILY 12/22/18 Verapamil HCl [Verapamil ER] 180 mg PO DAILY 12/22/18 Naproxen 500 mg PO BID 03/20/19 Telmisartan [Micardis] 80 mg PO DAILY 03/21/19 Albuterol Sulfate Inhaler - 2 puff PO TID 03/29/19 [Ventolin HFA Inhaler -] Carbamazepine [Tegretol -] 200 mg PO BID 03/29/19 Telmisartan/Hydrochlorothiazid PO DAILY 03/29/19 [Telmisartan-Hctz 80-12.5 mg Tb] REVIEW OF SYSTEMS CONSTITUTIONAL: Absent: fever, chills, diaphoresis, + generalized weakness, malaise HEENT: Absent: rhinorrhea, nasal congestion, throat pain, throat swelling, difficulty swallowing, mouth swelling, ear pain, eye pain, visual changes CARDIOVASCULAR: Absent: chest pain, syncope, palpitations, irregular heart rate, lightheadedness , peripheral edema RESPIRATORY: Absent: cough, shortness of breath, dyspnea with exertion, orthopnea, wheezing, stridor, hemoptysis GASTROINTESTINAL: Absent: abdominal pain, abdominal distension, nausea GENITOURINARY: Absent: dysuria, frequency, urgency, MUSCULOSKELETAL: Absent: myalgia, SKIN: Absent: rash, itching, pallor HEMATOLOGIC/IMMUNOLOGIC: Absent: easy bleeding, easy bruising, lymphadenopathy, frequent infections ENDOCRINE: Absent: unexplained weight gain, unexplained weight loss, heat intolerance, cold intolerance NEUROLOGIC: Absent: headache, focal weakness or paresthesias, dizziness, seizure, PSYCHIATRIC: Absent: anxiety, depression, suicidal or homicidal ideation, hallucinations. PHYSICAL EXAMINATION Vital Signs Period Temp Pulse Resp BP Sys/Nunez Pulse Ox Last 24 Hr 97.2 F-98.4 F 65-84 16-20 115-143/56-73 98 GENERAL: A&Ox3, NAD HEAD: NCAT EYES: PERRL, EOMI, Left conjunctival injection ENT: oropharynx clear without exudates. Moist mucous membranes. NECK: No JVD, FROM however left rotation and sidebending induce pain, Left neck tender to palaption, no midline spine tenderness LUNGS: Diminished breath sounds at the bases, No wheezes, no crackles HEART: Regular rate and rhythm, normal S1 and S2 without murmur ABDOMEN: Obese, Soft, nontender, not distended, + bowel sounds, no guarding, no rebound EXTREMITIES: 2+ pulses, No peripheral edema. NEUROLOGICAL: Cranial nerves II-XII intact. Normal speech. Diminished sensation over the Left knee only otherwise Gross sensation including Left L4 dermatome intact, 5/5 muscle strength throughout. NIHSS 0 SKIN: Warm, dry, B/L Lower extremity Varicose veins Laboratory Results - last 24 hr 03/29/19 03/29/19 03/29/19 00:35 00:35 00:35 WBC 5.7 RBC 3.77 Hgb 11.6 Hct 34.8 MCV 92.4 MCH 30.9 MCHC 33.4 RDW 13.8 Plt Count 265 MPV 8.1 Absolute Neuts (auto) 3.2 Neutrophils % 55.2 Lymphocytes % 33.0 Monocytes % 7.3 Eosinophils % 4.1 D Basophils % 0.4 Nucleated RBC % 0 Sodium 134 L Potassium 4.4 Chloride 99 Carbon Dioxide 29 Anion Gap 7 L BUN 15.2 Creatinine 0.7 Est GFR (CKD-EPI)AfAm 105.38 Est GFR (CKD-EPI)NonAf 90.92 Random Glucose 94 Calcium 9.0 Total Bilirubin 0.2 AST 15 ALT 19 Alkaline Phosphatase 220 H Troponin I 0.02 Total Protein 7.2 Albumin 3.9 Urine Color Urine Appearance Urine pH Ur Specific [place] Urine Protein Urine Glucose (UA) Urine Ketones Urine Blood Urine Nitrite Urine Bilirubin Urine Urobilinogen Ur Leukocyte Esterase Urine WBC (Auto) Urine RBC (Auto) Urine Casts (Auto) U Epithel Cells (Auto) Urine Bacteria (Auto) 03/29/19 00:35 WBC RBC Hgb Hct MCV MCH MCHC RDW Plt Count MPV Absolute Neuts (auto) Neutrophils % Lymphocytes % Monocytes % Eosinophils % Basophils % Nucleated RBC % Sodium Potassium Chloride Carbon Dioxide Anion Gap BUN Creatinine Est GFR (CKD-EPI)AfAm Est GFR (CKD-EPI)NonAf Random Glucose Calcium Total Bilirubin AST ALT Alkaline Phosphatase Troponin I Total Protein Albumin Urine Color Yellow Urine Appearance Clear Urine pH 7.5 Ur Specific [place] 1.015 Urine Protein Negative Urine Glucose (UA) Negative Urine Ketones Negative Urine Blood Negative Urine Nitrite Negative Urine Bilirubin Negative Urine Urobilinogen 0.2 Ur Leukocyte Esterase Trace Urine WBC (Auto) 4 Urine RBC (Auto) 0 Urine Casts (Auto) 1 U Epithel Cells (Auto) 2.7 Urine Bacteria (Auto) 796.2 ASSESSMENT/PLAN: 63 y/o F with PMHx of Epilepsy, CAD (s/p PCI, No Stents, Recent stress test ), HTN, HLD, Asthma, GERD presents with Headache, Neck Pain and ?Word finding difficulty. Patient reported Left sided neck pain described as a strong ache, worse with palpation for the past week. J prior to admission, she visited her Orthopedic sx for a cortisone injection; After the injection, patient felt sudden onset Left sided headache and face pain, accompanied by nausea and dizziness, forcing the patient to lay supine without relief. She shortly after went home however her symptoms persisted and she noted a new left eye conjunctival injection. She was hesitant to visit the ED but was afraid of worsening while asleep, prompting her to visit the ED. Her headache waxes and wanes, and is rated at 5-6/10 at worst, She is unable to describe it but mentions it radiates to her left neck and trapezius. Denies any recent trauma. No associated numbness, tingling, weakness. She has tried anything for the pain , and is unable to identify any triggers or relieving sx's. She additionally mentioned some word finding difficulty while she was home. She is unable to quantify but mentions this has been ongoing and is currently not experiencing this. she completed noncontrast head CT which did not show any acute changes. CTA of the head and neck was also completed to rule out dissection and was within normal limits. MRI of the brain was also completed and did not show any significant infarct or space-occupying lesions. This morning, she reports feeling at baseline without significant neurologic complaints. She is interested in discharge and I have no objection to this. She has been on verapamil which I discussed with the resident can be helpful for cluster headaches. He provided prescription for Fioricet to be taken as needed and can follow up as an outpatient.
[2019-03-31] MEDS ORDERED: PT OWN MED DRAWER 7, Y5N ONE ×2 (10:15→13:00)
[2019-03-31] MEDS: ASPIRIN 81 MG CHEWABLE TABLETS PO SCH (10:17)
[2019-03-31] MEDS: CARBAMAZEPINE 200 MG PO SCH (10:17)
[2019-03-31] MEDS: VERAPAMIL HCL 180 MG E.R. TABLET PO SCH (12:33)
--- NOTE | 2019-03-31 14:27 | PN ---
Teaching Attending Note Name of Resident: Kelin Mata ATTENDING PHYSICIAN STATEMENT I saw and evaluated the patient. I reviewed the resident's note and discussed the case with the resident. I agree with the resident's findings and plan as documented. 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 no weakness or numbness OBJECTIVE: NAD, awake, alert and oriented HEENT: L subconjunctival bleed ( improved ) . round equal pupils, reactive to light. MMM. TTP over L trapezius muscle CV: RRR, no MRG Lungs:CATB Ext: No edema or erythema Neuro: EOMI, round equal and reactive pupils, no facial droop, tongue and uvula at mid line. sensation to light touch is nl in face and body strength 5/5 in upper and lower extremities proximally and distally. reflexes: 2 + biceps and knee jerk and BR ASSESSMENT AND PLAN: 63 y/o lady with h/o Epilepsy, CAD, HTN, HLD, Asthma, GERD, amd recent PCi with no stents placement, who presented with L sided neck pain as well as GOMEZ , and L sided numbness. 1- Neuro sx of L sided numbness and L sided face pain, could be due to complicated migraine. MRI did not show any infarcts - will dc on firoicet and felxeril and f.u with neuro 2- HTN, HLP, CAD: cont statin, CCB, ASA. dc home
[2019-03-31 14:32] VITALS: BP 127/69; PULSE 68; TEMP 98.4
--- NOTE | 2019-04-02 20:01 | DS ---
Physical Exam: SUBJECTIVE: Patient seen and examined at the [facility], there were no acute events. Patient reports that symptoms have greatly improved after addition of flexeril. OBJECTIVE: Last Vital Signs Temp Pulse Resp BP Pulse Ox 98.4 F 68 20 127/69 98 03/31/19 14:00 03/31/19 14:00 03/31/19 14:00 03/31/19 14:00 03/31/19 09:00 PHYSICAL EXAM GENERAL: The patient is awake, alert, and fully oriented, in no acute distress. HEAD: Normal with no signs of trauma. EYES: PERRL, extraocular movements intact, sclera anicteric, L sided subconjunctival hemorrhage, improving. ENT: Ears normal, nares patent, oropharynx clear without exudates, moist mucous membranes. NECK: Trachea midline,tender to palpation over L trapezius muscle LUNGS: Breath sounds equal, clear to auscultation bilaterally, no wheezes, no crackles, no accessory muscle use. HEART: Regular rate and rhythm, S1, S2 without murmur, rub or gallop. ABDOMEN: Soft, nontender, nondistended, normoactive bowel sounds, no guarding, no rebound, EXTREMITIES: 2+ pulses, warm, well-perfused, no edema. NEUROLOGICAL: Cranial nerves II through XII grossly intact. Strength 5/5 in upper and lower extremities. Normal speech, gait not observed. PSYCH: Normal mood, normal affect. SKIN: Warm, dry, normal turgor, no rashes or lesions noted LABS CBC, BMP 03/31/19 06:45 03/31/19 06:45 CBC,CMP WBC 4.5 K/mm3 (4.0-10.0) 03/31/19 06:45 RBC 3.57 M/mm3 (3.60-5.2) L 03/31/19 06:45 Hgb 11.1 GM/dL (10.7-15.3) 03/31/19 06:45 Hct 33.0 % (32.4-45.2) 03/31/19 06:45 MCV 92.6 fl (80-96) 03/31/19 06:45 MCH 31.1 pg (25.7-33.7) 03/31/19 06:45 MCHC 33.6 g/dl (32.0-36.0) 03/31/19 06:45 RDW 13.9 % (11.6-15.6) 03/31/19 06:45 Plt Count 259 K/MM3 (134-434) 03/31/19 06:45 MPV 7.9 fl (7.5-11.1) 03/31/19 06:45 Absolute Neuts (auto) 3.1 K/mm3 (1.5-8.0) 03/30/19 06:40 Neutrophils % 54.8 % (42.8-82.8) 03/30/19 06:40 Lymphocytes % 35.8 % (8-40) 03/30/19 06:40 Monocytes % 6.4 % (3.8-10.2) 03/30/19 06:40 Eosinophils % 2.7 % (0-4.5) 03/30/19 06:40 Basophils % 0.3 % (0-2.0) 03/30/19 06:40 Nucleated RBC % 0 % (0-0) 03/30/19 06:40 Sodium 137 mmol/L (136-145) 03/31/19 06:45 Potassium 4.3 mmol/L (3.5-5.1) 03/31/19 06:45 Chloride 101 mmol/L (98-107) 03/31/19 06:45 Carbon Dioxide 27 mmol/L (21-32) 03/31/19 06:45 Anion Gap 8 MMOL/L (8-16) 03/31/19 06:45 BUN 13.5 mg/dL (7-18) 03/31/19 06:45 Creatinine 0.7 mg/dL (0.55-1.3) 03/31/19 06:45 Est GFR (CKD-EPI)AfAm 104.64 03/31/19 06:45 Est GFR (CKD-EPI)NonAf 90.29 03/31/19 06:45 Random Glucose 96 mg/dL (74-106) 03/31/19 06:45 Calcium 8.7 mg/dL (8.5-10.1) 03/31/19 06:45 Phosphorus 4.7 mg/dL (2.5-4.9) 03/30/19 06:40 Magnesium 2.2 mg/dL (1.8-2.4) 03/30/19 06:40 Total Bilirubin 0.4 mg/dL (0.2-1) 03/30/19 06:40 AST 14 U/L (15-37) L 03/30/19 06:40 ALT 19 U/L (13-61) 03/30/19 06:40 Alkaline Phosphatase 202 U/L (45-117) H 03/30/19 06:40 Troponin I 0.02 ng/ml (0.00-0.05) 03/29/19 00:35 Total Protein 6.7 g/dl (6.4-8.2) 03/30/19 06:40 Albumin 3.5 g/dl (3.4-5.0) 03/30/19 06:40 Vitamin B12 669 pg/ml (193-986) 03/30/19 06:40 HOSPITAL COURSE: Date of Admission:03/29/19 63 y/o F with PMHx of Epilepsy, CAD (s/p PCI, No Stents, Recent stress test ), HTN, HLD, Asthma, GERD presents with headache associated with sudden onset of pain radiating down her left neck and left upper thoracic region. Patient admitted to rule out any acute intracranial process due to neurological symptoms. Myocardial infarction ruled out with negative troponin and EKG showed no ST elevation with no acute changes from last EKG. Patient had recent stress test in December 2018, which was within normal limits. Head CT was within normal limits ruling out any hemorrhage or mass. CTA of head and neck negative for any acute pathology, including dissection. Brain MRI completed and negative for any infarct. Patients headache gradually improved with rest. Neurology was to assess patient for complicated migraines. Patient was prescribed Fiorect as needed for migraines and recommended outpatient follow up. Patient given Flexeril due to patients persistent left-sided neck pain and upper thoracic tenderness with decreased sensation in patients left face, arm, and leg and decreased muscle strength in left upper extremity. This relieved patients decreased sensation and muscle strength with relief of pain and tenderness in neck and upper thorax. Patient presented with left eye subconjunctival hemorrhage, most likely 2/2 to her coughing/ dry heaving prior to hospitalization. This improved over the patients hospital course. Patient was discharged home with plans to follow up with her primary care doctor and a neurologist for further evaluation of her migraine headaches. Date of Discharge: 03/31/19 Minutes to complete discharge: 40 Discharge Summary Reason For Visit: LIGHTHEADNESS,TIA Condition: Improved - Instructions Diet, Activity, Other Instructions: You were in the hospital because you were having L sides numbness/ tingling in addition to pain and difficulty raising your left arm. While in the hospital your workup included imaging of your brain which did not show any evidence of a stroke. You also were seen by a neurologist. The most likely cause of your symptoms are migraines. You should follow up with your primary care doctor and the neurologist in 1 week. Please continue taking your home medicines as prescribed with the following changes: ADD: - Fioricet 1 tablet by mouth twice per day as needed - Flexeril 5mg, 1 tablet every 8 hours as needed Please STOP taking the naproxen and meloxicam as those can have senior care effects on your kidneys Please follow up with the following doctors within 1 week of discharge from the hospital: - Dr. Gonzalez, the neurologist, to evaluate your migraines and adjust your medicine - Dr. Chowdary, your primary care doctor Please return to the Emergency Department immediately if you have symptoms of severe headache associated with weakness, numbness in your face/ arms, or legs. Referrals: Perry Chowdary MD [Primary Care Provider] - 1 Week Aj Gonzalez MD [Staff Physician] - 1 Week Disposition: HOME - Home Medications Comprehensive Discharge Medication List: Ambulatory Orders Atorvastatin Ca [Lipitor] 40 mg PO HS 12/21/18 Aspirin 81 mg PO DAILY 12/22/18 Verapamil HCl [Verapamil ER] 180 mg PO DAILY 12/22/18 Albuterol Sulfate Inhaler - [Ventolin HFA Inhaler -] 2 puff PO TID 03/29/19 Carbamazepine [Tegretol -] 200 mg PO BID 03/29/19 [id number]/Sod Sulf,Bicarb,Cl/KCl [Gavilyte-G Solution] 4,000 ml PO DAILY 03/29/19 Acetaminophen/Caffeine/Butalb [Fioricet -] 1 tablet PO BID #10 tablet MDD 2 Cyclobenzaprine HCl 5 mg PO Q8H PRN #10 tablet 03/31/19 This patient is new to me today: No Emergency Visit: Yes ED Registration Date: 03/29/19 Care time: The patient presented to the Emergency Department on the above date and was hospitalized for further evaluation of their emergent condition. Critical Care patient: No - Discharge Referral Referred to [facility] No ATTENDING PHYSICIAN STATEMENT I saw and evaluated the patient. I reviewed the resident's note and discussed the case with the resident. I agree with the resident's findings and plan as documented. SUBJECTIVE: OBJECTIVE: ASSESSMENT AND PLAN:
== END 2019-03-31 15:11 | disposition home or self-care (01) | DRG 103 ==
LOC: JER 21:46 → JERBED 03-29 06:06 → J5S 03-29 12:12
PROVIDERS: ADMIT Internal Medicine; ATTEND Internal Medicine
DX: G43.109 Migraine with aura, not intractable, without status migrainosus (principal); R47.01 Aphasia; Z88.0 Allergy status to penicillin; I25.10 Atherosclerotic heart disease of native coronary artery without angina pectoris; I10 Essential (primary) hypertension; E78.5 Hyperlipidemia, unspecified; Z86.73 Personal history of transient ischemic attack (TIA), and cerebral infarction without residual deficits; G40.909 Epilepsy, unspecified, not intractable, without status epilepticus; J45.909 Unspecified asthma, uncomplicated; K21.9 Gastro-esophageal reflux disease without esophagitis; Z98.61 Coronary angioplasty status; R20.0 Anesthesia of skin; H11.32 Conjunctival hemorrhage, left eye; R05 Cough; I45.10 Unspecified right bundle-branch block
CPT/HCPCS: 36415; 70496-TC; 70498-TC; 70551-TC; 80048; 80053; 81003; 82607; 83735; 84100; 84484; 85025; 85027; 87086; 87186; 93005; 93010; 97116-GP; 97161-GP; 99284-25; J0131; J1644; J7030

== ENCOUNTER 2021-12-01 06:27 | Day surgery (SDC) | payer OTHER ==
[2021-11-28 11:45] VITALS: BMI 42.3
[~2021-12-01 06:27] MED LIST: BUPIVICAINE 0.25%/MORPH PF/KETOROLAC - 51ML DISP.SYRINGE IA ONE; VANCOMYCIN 1,000 MG VIAL (RESTRICTED TO ID ONLY) IVPB ONE
[2021-12-01] MEDS ORDERED: MIDAZOLAM HCL 2 MG/2 ML SINGLE DOSE VIAL ONE ×2 (07:59→08:44)
[2021-12-01] MEDS ORDERED: BUPIVACAINE LIPOSOME/PF (EXPAREL) 266 MG/20 ML VIAL ONE (07:59)
[2021-12-01] MEDS ORDERED: BUPIVACAINE HCL/PF 0.5% (5MG/ML) 10 ML VIAL ONE (08:00)
[2021-12-01] MEDS ORDERED: SODIUM CHLORIDE 0.9% P/F 10 ML VIAL IJ ONE (08:02)
[2021-12-01] MEDS ORDERED: SUCCINYLCHOLINE CHLORIDE 200 MG/10 ML SYRINGE ONE (08:04)
[2021-12-01] MEDS ORDERED: ceFAZolin SODIUM 1 GM VIAL ONE ×2 (08:53→16:50)
[2021-12-01] MEDS ORDERED: TRANEXAMIC ACID 1000 MG/10 ML VIAL ONE ×2 (08:53→10:58)
[2021-12-01] MEDS ORDERED: VANCOMYCIN 1,000 MG VIAL (RESTRICTED TO ID ONLY) ONE (08:53)
[2021-12-01] MEDS ORDERED: ONDANSETRON 4 MG/2 ML VIAL ONE (08:53)
[2021-12-01] MEDS ORDERED: PROPOFOL 20 ML ONE ×2 (09:02)
[2021-12-01] MEDS ORDERED: BUPIVICAINE 0.25%/MORPH PF/KETOROLAC - 51ML DISP.SYRINGE IA ONE ×2 (10:44→11:25)
[2021-12-01] MEDS ORDERED: VANCOMYCIN 1,000 MG VIAL (RESTRICTED TO ID ONLY) IVPB ONE (11:10)
[2021-12-01] MEDS ORDERED: ONDANSETRON 4 MG/2 ML VIAL IVPUSH PRN ×2 (11:31→12:19)
[2021-12-01] MEDS ORDERED: MAG HYDROX/AL HYDROX/SIMETH 30 ML UNIT-DOSE CUP PO PRN (11:31)
[2021-12-01] MEDS ORDERED: LACTATED RINGERS SOLUTION 1,000 ML IV SCH (11:45)
[2021-12-01] MEDS ORDERED: oxyCODONE HCL 5 MG TABLET PO PRN (12:19)
[2021-12-01] MEDS ORDERED: FENTANYL CITRATE/PF 50 MCG/ML VIAL ONE (12:52)
[2021-12-01] MEDS ORDERED: ACETAMINOPHEN 500 MG TABLET (FP) ONE (12:59)
[2021-12-01] MEDS: ACETAMINOPHEN 500 MG TABLET (FP) PO SCH ×2 (13:03→20:05)
[2021-12-01] MEDS: oxyCODONE HCL 5 MG TABLET PO PRN ×3 (15:02→21:58)
[2021-12-01] MEDS ORDERED: DEXTROSE 5%-WATER - 50 ML IVPB ONE (16:50)
[2021-12-01] MEDS: CEFAZOLIN 2 GM in DEXTROSE 5%-WATER - 50 ML IVPB SCH (16:55)
[2021-12-01] MEDS: SENNOSIDES/DOCUSATE COMBO (SENNA PLUS) TABLET (UD) PO SCH (21:54)
[2021-12-01] MEDS: GABAPENTIN 300 MG CAPSULE PO SCH (21:54)
[2021-12-02] MEDS ORDERED: ceFAZolin SODIUM 1 GM VIAL ONE ×2 (00:56→09:11)
[2021-12-02] MEDS ORDERED: DEXTROSE 5%-WATER - 50 ML IVPB ONE ×2 (00:56→09:12)
[2021-12-02] MEDS: CEFAZOLIN 2 GM in DEXTROSE 5%-WATER - 50 ML IVPB SCH ×2 (01:11→09:19)
[2021-12-02] MEDS: ACETAMINOPHEN 500 MG TABLET (FP) PO SCH ×3 (01:54→12:52)
[2021-12-02 07:36] LABS: HEMATOCRIT 31.8 % (32.4-45.2); HEMOGLOBIN 10.7 G/dL (10.7-15.3); MCHC 33.7 g/dl (32.0-36.0); MEAN PLT VOLUME 8.4 fl (7.5-11.1); PLATELET COUNT 237.9 10^3/uL (134-434); RBC 3.46 10^6/uL (3.60-5.2); RDW 14.5 % (11.6-15.6); WHITE BLOOD COUNT 8.7 10^3/uL (4.0-10.8)
[2021-12-02 07:49] LABS: CALCIUM 8.1 mg/dl (8.5-10); CREATININE 0.8 mg/dl (0.55-1.3)
[2021-12-02] MEDS: SENNOSIDES/DOCUSATE COMBO (SENNA PLUS) TABLET (UD) PO SCH (09:20)
[2021-12-02] MEDS: GABAPENTIN 300 MG CAPSULE PO SCH (09:22)
[2021-12-02] MEDS: oxyCODONE HCL 5 MG TABLET PO PRN (09:22)
[2021-12-02] MEDS ORDERED: ASPIRIN 325 MG TABLET PO SCH (10:00)
[2021-12-02] MEDS ORDERED: MULTIVITAMINS (DAILY MVI) TABLET (FP) PO SCH (10:00)
[2021-12-02] MEDS ORDERED: PANTOPRAZOLE 40 MG TABLET PO SCH (10:00)
[2021-12-02] MEDS ORDERED: PATIENT'S OWN MEDICATION (NON-FORMULARY) (Telmisartan [Micardis] 80 MG Tablet) PO SCH (14:00)
[2021-12-02] MEDS ORDERED: VERAPAMIL HCL 180 MG E.R. TABLET PO SCH (14:00)
[2021-12-02] MEDS ORDERED: carBAMazepine 200 MG TABLET PO SCH (14:00)
[2021-12-02] MEDS ORDERED: ALBUTEROL SO4 HFA INHALER IH SCH (14:00)
[2021-12-02] MEDS ORDERED: LOSARTAN POTASSIUM 50 MG TABLET PO SCH (14:15)
[2021-12-02 14:21] VITALS: BP 119/56; PULSE 93; TEMP 98.4
[2021-12-02] MEDS ORDERED: ATORVASTATIN CA 40 MG TABLET (FP) PO SCH (22:00)
== END 2021-12-02 16:42 | disposition home or self-care (01) ==
LOC: FASUSAT 06:27 → SUATTDRO 06:27 → FM/S 13:18 → FASUSAT 12-02 16:42
PROVIDERS: ATTEND Nurse Practitioner Acute Care
PROC: 8E0YXBZ Computer Assisted Procedure of Lower Extremity (ICD-10-PCS; 2021-12-01)
PROC: 8E0Y0CZ Robotic Assisted Procedure of Lower Extremity, Open Approach (ICD-10-PCS; 2021-12-01)
PROC: 0SRD0J9 Replacement of Left Knee Joint with Synthetic Substitute, Cemented, Open Approach (ICD-10-PCS; principal; 2021-12-01 09:13)
DX: M17.12 Unilateral primary osteoarthritis, left knee (principal); I10 Essential (primary) hypertension; I25.10 Atherosclerotic heart disease of native coronary artery without angina pectoris; G40.909 Epilepsy, unspecified, not intractable, without status epilepticus; J45.909 Unspecified asthma, uncomplicated; K21.9 Gastro-esophageal reflux disease without esophagitis; E78.5 Hyperlipidemia, unspecified
CPT/HCPCS: 20985; 27447; C1776; S2900; 36415; 73560-TC-LT-FY; 80048; 85027; 88305-TC; 88311-TC; 94760; 97010-GP; 97116-GP; 97161-GP

== ENCOUNTER 2024-02-01 07:30 | Day surgery (SDC) | payer OTHER ==
[2024-02-01 08:03] VITALS: BMI 42.3
[2024-02-01] MEDS ORDERED: VANCOMYCIN 1,000 MG VIAL (RESTRICTED TO ID ONLY) ONE ×2 (09:52→10:51)
[2024-02-01] MEDS ORDERED: MIDAZOLAM HCL 2 MG/2 ML SINGLE DOSE VIAL ONE (09:54)
[2024-02-01] MEDS ORDERED: BUPIVACAINE HCL/PF 0.5% (5 MG/ML) 30 ML VIAL IJ ONE (09:54)
[2024-02-01] MEDS ORDERED: ACETAMINOPHEN INJECTION 100 ML IVPB ONE (09:54)
[2024-02-01] MEDS ORDERED: BUPIVACAINE LIPOSOME/PF (EXPAREL) 266 MG/20 ML VIAL ONE (09:54)
[2024-02-01] MEDS ORDERED: PROPOFOL 20 ML ONE ×3 (10:53→11:44)
[2024-02-01] MEDS: ACETAMINOPHEN 1000 MG/100 ML BAG IVPB ONE (11:00)
[2024-02-01] MEDS ORDERED: BUPIVICAINE 0.25%/MORPH PF/KETOROLAC - 51ML DISP.SYRINGE IA ONE (11:06)
[2024-02-01] MEDS: KETOROLAC TROMETHAMINE 30 MG/1 ML VIAL IVPUSH SCH (12:30)
[2024-02-01] MEDS ORDERED: TRANEXAMIC ACID 1000 MG/10 ML VIAL ONE (12:40)
[2024-02-01] MEDS: VANCOMYCIN 1,000 MG VIAL (RESTRICTED TO ID ONLY) IVPB ONE (12:50)
[2024-02-01] MEDS: BUPIVICAINE 0.25%/MORPH PF/KETOROLAC - 51ML DISP.SYRINGE IA ONE (13:06)
[2024-02-01] MEDS ORDERED: MAG HYDROX/AL HYDROX/SIMETH 30 ML UNIT-DOSE CUP PO PRN (13:54)
[2024-02-01] MEDS ORDERED: ONDANSETRON 4 MG/2 ML VIAL IVPUSH PRN ×2 (13:54→14:10)
[2024-02-01] MEDS ORDERED: LACTATED RINGERS SOLUTION 1,000 ML IV SCH (14:15)
[2024-02-01] MEDS: ACETAMINOPHEN 500 MG TABLET (FP) PO SCH (16:59)
[2024-02-01] MEDS: oxyCODONE HCL 5 MG TABLET PO PRN (17:00)
[2024-02-01] MEDS: LACTATED RINGERS SOLUTION 1,000 ML IV SCH (17:02)
[2024-02-01] MEDS: CEFAZOLIN SODIUM 2 GM in DEXTROSE 5%-WATER 100 ML IVPB SCH (18:29)
[2024-02-01] MEDS: SENNOSIDES/DOCUSATE COMBO (SENNA PLUS) TABLET (UD) PO SCH (21:27)
[2024-02-01] MEDS: oxyCODONE HCL 10 MG SUSTAINED ACTING TABLET PO SCH (21:27)
[2024-02-02 06:28] VITALS: RESP 18
[2024-02-02 08:02] LABS: HEMATOCRIT 31.9 % (32.4-45.2); HEMOGLOBIN 10.3 G/dL (10.7-15.3); MCHC 32.4 g/dl (32.0-36.0); MEAN CELL VOLUME 95.8 fl (80-96); MEAN PLT VOLUME 8.4 fl (7.5-11.1); PLATELET COUNT 220.4 10^3/uL (134-434); RBC 3.33 10^6/uL (3.60-5.2); RDW 13.9 % (11.6-15.6); WHITE BLOOD COUNT 7.7 10^3/uL (4.0-10.8)
[2024-02-02 08:12] LABS: CALCIUM 8.4 mg/dl (8.5-10.1); CREATININE 0.7 mg/dl (0.6-1.3); POTASSIUM 4.1 mmol/L (3.5-5.1)
[2024-02-02] MEDS: MULTIVITAMINS (DAILY MVI) TABLET (FP) PO SCH (09:25)
[2024-02-02] MEDS: LOSARTAN POTASSIUM 50 MG TABLET PO SCH (09:25)
[2024-02-02] MEDS: oxyCODONE HCL 5 MG TABLET PO PRN (09:25)
[2024-02-02] MEDS: PANTOPRAZOLE 40 MG TABLET PO SCH (09:25)
[2024-02-02] MEDS: carBAMazepine 200 MG TABLET PO SCH (09:25)
[2024-02-02] MEDS: ASPIRIN 81 MG CHEWABLE TABLETS PO SCH (09:25)
[2024-02-02] MEDS: VERAPAMIL HCL 180 MG E.R. TABLET PO SCH (09:26)
[2024-02-02 14:36] VITALS: BP 130/72; PULSE 77; TEMP 98.3
[2024-02-02] MEDS ORDERED: ATORVASTATIN CA 40 MG TABLET (FP) PO SCH (22:00)
== END 2024-02-02 16:48 | disposition home or self-care (01) ==
LOC: FASUSAT 07:30 → FASU 07:30 → FM/S 15:42 → FASUSAT 02-02 16:48
PROVIDERS: ATTEND Orthopaedic Surgery Sports Medicine
PROC: 8E0Y0CZ Robotic Assisted Procedure of Lower Extremity, Open Approach (ICD-10-PCS; 2024-02-01)
PROC: 0SRC0JA Replacement of Right Knee Joint with Synthetic Substitute, Uncemented, Open Approach (ICD-10-PCS; principal; 2024-02-01 11:36)
DX: M17.11 Unilateral primary osteoarthritis, right knee (principal)
CPT/HCPCS: 20985; 27447; C1776; S2900; 36415; 73560-TC-RT-FY; 80048; 85027; 94760; 97010-GP; 97116-GP; 97162-GP; J0131

== ENCOUNTER 2024-03-03 10:53 | Inpatient (IN) | payer OTHER ==
[2024-03-03 11:23] VITALS: BMI 36.3
[2024-03-03] MEDS ORDERED: ACETAMINOPHEN INJECTION 100 ML ONE (12:43)
[2024-03-03] MEDS: ACETAMINOPHEN 1000 MG/100 ML BAG IVPB ONE ×2 (12:50→19:57)
[2024-03-03 12:58] LABS: BASO % 1.4 % (0-2.0); EOS % 3.8 % (0-4.5); HEMATOCRIT 33.8 % (32.4-45.2); HEMOGLOBIN 11.2 GM/dL (10.7-15.3); LYMPH % 23.3 % (8-40); MCH 30.2 pg (25.7-33.7); MCHC 33.3 g/dl (32.0-36.0); MEAN PLT VOLUME 8.8 fl (7.5-11.1); MONO % 8.3 % (3.8-10.2); NEUT % 63.2 % (42.8-82.8); PLATELET COUNT 392 10^3/uL (134-434); RBC 3.72 M/mm3 (3.60-5.2); RDW 14.4 % (11.6-15.6); WHITE BLOOD COUNT 5.2 K/mm3 (4.0-10.0)
[2024-03-03 13:03] LABS: INR 1.01 (0.83-1.09); PROTHROMBIN TIME (PATIENT) 11.6 SEC (9.7-13.0)
[2024-03-03 13:06] LABS: ACTIVATED PTT 28.4 SECONDS (25.2-36.5)
[2024-03-03 13:15] LABS: CHLORIDE 105 mmol/L (98-107); SODIUM 133 mmol/L (136-145)
[2024-03-03 13:17] LABS: ALBUMIN 3.4 g/dl (3.4-5.0); ANION GAP 4 mmol/L (4-13); BLOOD UREA NITROGEN 13.8 mg/dL (7-18); CALCIUM 8.3 mg/dL (8.5-10.1); CO2 25 mmol/L (21-32); GLUCOSE,RANDOM 74 mg/dL (74-106); POTASSIUM 7.2 mmol/L (3.5-5.1)
[2024-03-03 13:20] LABS: CREATININE 0.7 mg/dL (0.55-1.3); SGOT/AST 93 U/L (15-37)
[2024-03-03 13:22] LABS: BILIRUBIN,TOTAL 0.4 mg/dL (0.2-1); TOT PROT 8.1 g/dl (6.4-8.2)
[2024-03-03 13:23] LABS: ALK PHOS 167 U/L (45-117)
[2024-03-03 13:30] LABS: SGPT/ALT 18 U/L (13-61)
[2024-03-03 13:43] LABS: ERYTHROCYTE SEDIMENTATION RATE 44 mm/hr (0-30)
[2024-03-03] MEDS ORDERED: VANCOMYCIN 1 GRAM (PRE-DOCKED) 1,000 MG/250 ML BAG IVPB ONE (14:51)
[2024-03-03] MEDS ORDERED: MEROPENEM 1 GM VIAL (RESTRICTED TO ID) IVPB ONE (14:52)
[2024-03-03] MEDS: MEROPENEM 1 GM in DEXTROSE 5%-WATER 100 ML IVPB ONE (15:25)
[2024-03-03] MEDS: VANCOMYCIN 1,000 MG in DEXTROSE 5%-WATER - 250 ML IVPB ONE (15:34)
[2024-03-03 15:46] LABS: POTASSIUM 5.4 mmol/L (3.5-5.1)
[2024-03-03 15:48] LABS: ALBUMIN 3.4 g/dl (3.4-5.0); CALCIUM 8.4 mg/dL (8.5-10.1)
[2024-03-03 15:49] LABS: BLOOD UREA NITROGEN 11.2 mg/dL (7-18)
[2024-03-03 15:52] LABS: CREATININE 0.6 mg/dL (0.55-1.3)
[2024-03-03 15:53] LABS: BILIRUBIN,TOTAL 0.4 mg/dL (0.2-1); TOT PROT 7.2 g/dl (6.4-8.2)
[2024-03-03] MEDS ORDERED: VANCOMYCIN/WATER 1250 MG 1,250 MG/250 ML BAG IVPB ONE (16:04)
[2024-03-03] MEDS: VANCOMYCIN/WATER 1250 MG 1,250 MG/250 ML BAG IVPB SCH (16:28)
[2024-03-03] MEDS: MEROPENEM 1 GM in DEXTROSE 5%-WATER 100 ML IVPB SCH (18:26)
[2024-03-04] MEDS: IBUPROFEN 400 MG TABLET (FP) PO ONE (05:33)
[2024-03-04] MEDS ORDERED: GABAPENTIN 100 MG CAPSULE PO PRN (09:18)
[2024-03-04] MEDS: LOSARTAN POTASSIUM 50 MG TABLET PO SCH (09:33)
[2024-03-04] MEDS: FAMOTIDINE 20 MG TABLET PO SCH (09:33)
[2024-03-04] MEDS: ENOXAPARIN NA (PORCINE) 40 MG/0.4 ML DISP.SYRIN SQ SCH (09:33)
[2024-03-04] MEDS: VERAPAMIL HCL 180 MG E.R. TABLET PO SCH (11:18)
[2024-03-04] MEDS: carBAMazepine XR 200 MG TAB.ER.12H PO SCH (11:19)
[2024-03-04] MEDS: DOCUSATE SODIUM 100 MG CAPSULE (FP) PO SCH (12:29)
[2024-03-04] MEDS: oxyCODONE HCL 5 MG TABLET PO PRN (12:31)
[2024-03-04] MEDS: traMADol HCL 50 MG TABLET PO PRN (16:14)
[2024-03-04] MEDS: ATORVASTATIN CA 40 MG TABLET (FP) PO SCH (21:19)
[2024-03-06] MEDS: ACETAMINOPHEN 325 MG TABLET (FP) PO PRN (07:49)
[2024-03-06 09:08] LABS: HEMATOCRIT 31.9 % (32.4-45.2); HEMOGLOBIN 10.5 GM/dL (10.7-15.3); MCH 29.6 pg (25.7-33.7); MCHC 32.8 g/dl (32.0-36.0); MEAN CELL VOLUME 90.3 fl (80-96); MEAN PLT VOLUME 8.3 fl (7.5-11.1); PLATELET COUNT 320 10^3/uL (134-434); RBC 3.53 M/mm3 (3.60-5.2); RDW 14.5 % (11.6-15.6); WHITE BLOOD COUNT 4.6 K/mm3 (4.0-10.0)
[2024-03-06 09:14] LABS: INR 1.05 (0.83-1.09); PROTHROMBIN TIME (PATIENT) 11.9 SEC (9.7-13.0)
[2024-03-06 09:26] LABS: BLOOD UREA NITROGEN 10.5 mg/dL (7-18); CALCIUM 8.2 mg/dL (8.5-10.1); MAGNESIUM 2.4 mg/dL (1.8-2.4); POTASSIUM 3.9 mmol/L (3.5-5.1)
[2024-03-06 09:29] LABS: CREATININE 0.5 mg/dL (0.55-1.3)
[2024-03-06 09:30] LABS: PHOSPHOROUS 3.8 mg/dL (2.5-4.9)
[2024-03-06] MEDS ORDERED: PROPOFOL 40 ML ONE (14:51)
[2024-03-06] MEDS: ceFAZolin SODIUM 1 GM VIAL IVPB ONE (15:24)
[2024-03-06] MEDS ORDERED: ALBUTEROL SO4 HFA INHALER IH ONE (16:52)
[2024-03-06] MEDS: MUPIROCIN 2% TOPICAL OINTMENT 22 GM TUBE TP ONE (17:10)
[2024-03-06 17:13] LABS: BF WBC & OTHER NUCLEATED CELLS 753 /mm3; BODY FLUID MACROPHAGES 7 %; BODY FLUID MONOCYTE 13 %
[2024-03-06] MEDS ORDERED: ONDANSETRON 4 MG/2 ML VIAL IVPUSH PRN ×2 (17:28→19:48)
[2024-03-06] MEDS ORDERED: ACETAMINOPHEN INJECTION 100 ML ONE (17:57)
[2024-03-06] MEDS: ACETAMINOPHEN 1000 MG/100 ML BAG IVPB ONE (18:00)
[2024-03-06] MEDS ORDERED: ROPIVACAINE HCL 0.5% 30ML VIAL ONE (18:48)
[2024-03-06] MEDS ORDERED: DEXAMETHASONE SOD PHOSPHATE 10 MG/1 ML VIAL ONE (18:54)
[2024-03-06] MEDS ORDERED: GABAPENTIN 100 MG CAPSULE PO PRN (19:48)
[2024-03-06] MEDS: VANCOMYCIN/WATER 1250 MG 1,250 MG/250 ML BAG IVPB SCH (20:31)
[2024-03-06] MEDS: LACTATED RINGERS SOLUTION 1,000 ML IV SCH (20:31)
[2024-03-06] MEDS: MEROPENEM 1 GM in DEXTROSE 5%-WATER 100 ML IVPB SCH (22:13)
[2024-03-06] MEDS: ATORVASTATIN CA 40 MG TABLET (FP) PO SCH (22:13)
[2024-03-06] MEDS: DOCUSATE SODIUM 100 MG CAPSULE (FP) PO SCH (22:13)
[2024-03-06] MEDS: carBAMazepine XR 200 MG TAB.ER.12H PO SCH (22:24)
[2024-03-06] MEDS: POLYETHYLENE GLYCOL (HEALTHYLAX) 3350 17 GM PACKET PO ONE (22:47)
[2024-03-06] MEDS ORDERED: POLYETHYLENE GLYCOL (HEALTHYLAX) 3350 17 GM PACKET PO ONE (23:45)
[2024-03-07] MEDS: MUPIROCIN 2% TOPICAL OINTMENT 22 GM TUBE TP ONE ×2 (00:34→00:35)
[2024-03-07] MEDS: LACTATED RINGERS SOLUTION 1,000 ML IV SCH (00:34)
[2024-03-07] MEDS: ACETAMINOPHEN 1000 MG/100 ML BAG IVPB ONE (00:35)
[2024-03-07 10:17] LABS: POTASSIUM 3.9 mmol/L (3.5-5.1)
[2024-03-07 10:19] LABS: BASO % 0.4 % (0-2.0); HEMATOCRIT 32.9 % (32.4-45.2); LYMPH % 14.3 % (8-40); MCH 29.8 pg (25.7-33.7); MCHC 33.3 g/dl (32.0-36.0); MEAN CELL VOLUME 89.5 fl (80-96); MONO % 3.3 % (3.8-10.2); PLATELET COUNT 317 10^3/uL (134-434); RBC 3.68 M/mm3 (3.60-5.2); RDW 14.3 % (11.6-15.6)
[2024-03-07 10:27] LABS: CALCIUM 8.9 mg/dL (8.5-10.1)
[2024-03-07 10:30] LABS: ALBUMIN 3.3 g/dl (3.4-5.0); BLOOD UREA NITROGEN 10.2 mg/dL (7-18); MAGNESIUM 2.4 mg/dL (1.8-2.4)
[2024-03-07 10:33] LABS: BILIRUBIN,TOTAL 0.4 mg/dL (0.2-1); CREATININE 0.6 mg/dL (0.55-1.3)
[2024-03-07 10:34] LABS: PHOSPHOROUS 2.9 mg/dL (2.5-4.9)
[2024-03-07] MEDS: VERAPAMIL HCL 180 MG E.R. TABLET PO SCH (11:07)
[2024-03-07] MEDS: ENOXAPARIN NA (PORCINE) 40 MG/0.4 ML DISP.SYRIN SQ SCH (11:07)
[2024-03-07] MEDS: ASPIRIN COATED 81 MG TABLET.EC PO SCH (11:08)
[2024-03-07] MEDS: FAMOTIDINE 20 MG TABLET PO SCH (11:08)
[2024-03-07] MEDS: ERTAPENEM SODIUM 1 GM in SODIUM CHLORIDE 50 ML IVPB SCH (20:12)
[2024-03-07] MEDS: oxyCODONE HCL 5 MG TABLET PO PRN (21:25)
[2024-03-08 09:29] LABS: BASO % 0.7 % (0-2.0); EOS % 2.5 % (0-4.5); HEMATOCRIT 31.9 % (32.4-45.2); HEMOGLOBIN 10.6 GM/dL (10.7-15.3); MCH 30.1 pg (25.7-33.7); MCHC 33.2 g/dl (32.0-36.0); MEAN CELL VOLUME 90.4 fl (80-96); MEAN PLT VOLUME 8.4 fl (7.5-11.1); MONO % 6.7 % (3.8-10.2); NEUT % 53.1 % (42.8-82.8); PLATELET COUNT 318 10^3/uL (134-434); RBC 3.52 M/mm3 (3.60-5.2); RDW 14.2 % (11.6-15.6); WHITE BLOOD COUNT 5.5 K/mm3 (4.0-10.0)
[2024-03-08 09:50] LABS: POTASSIUM 3.8 mmol/L (3.5-5.1)
[2024-03-08 09:56] LABS: BLOOD UREA NITROGEN 12.2 mg/dL (7-18); MAGNESIUM 2.2 mg/dL (1.8-2.4)
[2024-03-08 09:59] LABS: CREATININE 0.6 mg/dL (0.55-1.3); PHOSPHOROUS 3.3 mg/dL (2.5-4.9)
[2024-03-08 10:00] LABS: BILIRUBIN,TOTAL 0.3 mg/dL (0.2-1)
[2024-03-08 10:01] LABS: TOT PROT 6.4 g/dl (6.4-8.2)
[2024-03-08] MEDS: ONDANSETRON 4 MG/2 ML VIAL IVPUSH PRN (16:14)
[2024-03-08] MEDS: PANTOPRAZOLE SODIUM 40 MG VIAL IVPUSH SCH (16:14)
[2024-03-08] MEDS ORDERED: POLYETHYLENE GLYCOL (HEALTHYLAX) 3350 17 GM PACKET PO PRN (16:50)
[2024-03-08] MEDS: MINERAL OIL ENEMA 133 ML ENEMA RC ONE (18:22)
[2024-03-09 09:52] LABS: BASO % 0.5 % (0-2.0); HEMATOCRIT 30.9 % (32.4-45.2); HEMOGLOBIN 10.3 GM/dL (10.7-15.3); LYMPH % 24.4 % (8-40); MCH 30.1 pg (25.7-33.7); MCHC 33.3 g/dl (32.0-36.0); MEAN CELL VOLUME 90.4 fl (80-96); MEAN PLT VOLUME 8.4 fl (7.5-11.1); MONO % 9.5 % (3.8-10.2); NEUT % 61.6 % (42.8-82.8); PLATELET COUNT 308 10^3/uL (134-434); RBC 3.42 M/mm3 (3.60-5.2); RDW 14.3 % (11.6-15.6); WHITE BLOOD COUNT 5.2 K/mm3 (4.0-10.0)
[2024-03-09 10:09] LABS: MAGNESIUM 2.2 mg/dL (1.8-2.4)
[2024-03-09 10:13] LABS: PHOSPHOROUS 3.7 mg/dL (2.5-4.9)
[2024-03-09] MEDS: POLYETHYLENE GLYCOL (HEALTHYLAX) 3350 17 GM PACKET PO SCH (11:13)
[2024-03-09] MEDS: ACETAMINOPHEN 325 MG TABLET (FP) PO PRN (14:27)
[2024-03-10 09:43] LABS: BASO % 0.5 % (0-2.0); EOS % 6.4 % (0-4.5); HEMATOCRIT 33.2 % (32.4-45.2); HEMOGLOBIN 11.1 GM/dL (10.7-15.3); LYMPH % 31.2 % (8-40); MCH 30.1 pg (25.7-33.7); MCHC 33.4 g/dl (32.0-36.0); MEAN PLT VOLUME 8.9 fl (7.5-11.1); MONO % 9.6 % (3.8-10.2); NEUT % 52.3 % (42.8-82.8); PLATELET COUNT 322 10^3/uL (134-434); RBC 3.68 M/mm3 (3.60-5.2); RDW 14.3 % (11.6-15.6); WHITE BLOOD COUNT 3.8 K/mm3 (4.0-10.0)
[2024-03-10 09:58] LABS: POTASSIUM 3.8 mmol/L (3.5-5.1)
[2024-03-10 10:04] LABS: ALBUMIN 3.1 g/dl (3.4-5.0)
[2024-03-10 10:05] LABS: CALCIUM 8.3 mg/dL (8.5-10.1)
[2024-03-10 10:06] LABS: BLOOD UREA NITROGEN 5.5 mg/dL (7-18); MAGNESIUM 2.3 mg/dL (1.8-2.4)
[2024-03-10 10:07] LABS: CREATININE 0.5 mg/dL (0.55-1.3)
[2024-03-10 10:09] LABS: BILIRUBIN,TOTAL 0.5 mg/dL (0.2-1); PHOSPHOROUS 3.6 mg/dL (2.5-4.9); TOT PROT 6.6 g/dl (6.4-8.2)
[2024-03-10 19:36] VITALS: RESP 18
[2024-03-11 08:51] LABS: BASO % 0.3 % (0-2.0); EOS % 6.5 % (0-4.5); HEMATOCRIT 30.9 % (32.4-45.2); HEMOGLOBIN 10.4 GM/dL (10.7-15.3); LYMPH % 24.9 % (8-40); MCH 30.4 pg (25.7-33.7); MCHC 33.8 g/dl (32.0-36.0); MEAN CELL VOLUME 90.1 fl (80-96); MEAN PLT VOLUME 8.6 fl (7.5-11.1); MONO % 8.3 % (3.8-10.2); PLATELET COUNT 322 10^3/uL (134-434); RBC 3.43 M/mm3 (3.60-5.2); RDW 14.3 % (11.6-15.6); WHITE BLOOD COUNT 4.7 K/mm3 (4.0-10.0)
[2024-03-11 09:10] LABS: POTASSIUM 4.2 mmol/L (3.5-5.1)
[2024-03-11 09:25] LABS: BLOOD UREA NITROGEN 7.9 mg/dL (7-18); CALCIUM 8.4 mg/dL (8.5-10.1); MAGNESIUM 2.3 mg/dL (1.8-2.4)
[2024-03-11] MEDS: traMADol HCL 50 MG TABLET PO PRN (09:26)
[2024-03-11 09:27] LABS: CREATININE 0.6 mg/dL (0.55-1.3)
[2024-03-11 09:28] LABS: BILIRUBIN,TOTAL 0.3 mg/dL (0.2-1); TOT PROT 6.4 g/dl (6.4-8.2)
[2024-03-14 08:46] VITALS: TEMP 98.2
[2024-03-14] MEDS: PANTOPRAZOLE 40 MG TABLET PO SCH (09:29)
[2024-03-14 10:20] LABS: BASO % 0.5 % (0-2.0); EOS % 6.1 % (0-4.5); HEMOGLOBIN 11.6 GM/dL (10.7-15.3); LYMPH % 25.1 % (8-40); MCH 30.4 pg (25.7-33.7); MEAN CELL VOLUME 89.3 fl (80-96); MEAN PLT VOLUME 8.8 fl (7.5-11.1); MONO % 7.6 % (3.8-10.2); NEUT % 60.7 % (42.8-82.8); PLATELET COUNT 345 10^3/uL (134-434); RDW 14.4 % (11.6-15.6); WHITE BLOOD COUNT 4.4 K/mm3 (4.0-10.0)
[2024-03-14 10:43] LABS: POTASSIUM 3.7 mmol/L (3.5-5.1)
[2024-03-14 10:47] LABS: ALBUMIN 3.2 g/dl (3.4-5.0); CALCIUM 8.5 mg/dL (8.5-10.1)
[2024-03-14 10:48] LABS: BLOOD UREA NITROGEN 8.4 mg/dL (7-18); MAGNESIUM 1.9 mg/dL (1.8-2.4)
[2024-03-14 10:51] LABS: CREATININE 0.6 mg/dL (0.55-1.3)
[2024-03-14 10:52] LABS: BILIRUBIN,TOTAL 0.3 mg/dL (0.2-1); TOT PROT 6.8 g/dl (6.4-8.2)
[2024-03-14 15:11] VITALS: BP 150/78; PULSE 78
== END 2024-03-14 17:05 | disposition home health service (06) | DRG 857 ==
LOC: JER 10:53 → JERBED 15:23 → J5S 17:24
PROVIDERS: ATTEND Internal Medicine
PROC: 0JBN0ZZ Excision of Right Lower Leg Subcutaneous Tissue and Fascia, Open Approach (ICD-10-PCS; principal; 2024-03-07)
PROC: 3E1U38Z Irrigation of Joints using Irrigating Substance, Percutaneous Approach (ICD-10-PCS; 2024-03-07)
DX: T81.49XA Infection following a procedure, other surgical site, initial encounter (principal); L03.115 Cellulitis of right lower limb; T81.30XA Disruption of wound, unspecified, initial encounter; Y83.9 Surgical procedure, unspecified as the cause of abnormal reaction of the patient, or of later complication, without mention of misadventure at the time of the procedure; I10 Essential (primary) hypertension; I25.10 Atherosclerotic heart disease of native coronary artery without angina pectoris; E78.5 Hyperlipidemia, unspecified; M19.90 Unspecified osteoarthritis, unspecified site; L08.9 Local infection of the skin and subcutaneous tissue, unspecified; K21.9 Gastro-esophageal reflux disease without esophagitis
CPT/HCPCS: 36415; 73564-TC-RT-FY; 73700-TC-RT; 74018-TC-FY; 80048; 80053; 83735; 84100; 85025; 85027; 85610; 85651; 85730; 86140; 86850; 86900; 86901; 87040; 87070; 87075; 87205; 88304-TC; 93005; 93010; 93971-TC; 94760; 97116-GP; 97161-GP; 99285-25; G0480; J0131; J1100